=== PATIENT | male | born 1990 | race Caucasian/White ===

== ENCOUNTER 2020-05-12 19:39 | Emergency (ER) | payer MEDICAID ==
[~2020-05-12] VITALS: Ht 185.4 cm; Wt 132.0 kg
[2020-05-12 19:43] VITALS: BP 150/86
[2020-05-12] MEDS ORDERED: ONDANSETRON 4 MG ODT PO ONE (20:00)
[2020-05-12] MEDS ORDERED: MORPHINE SULFATE 4 MG/ML SYR IM ONE (20:00)
[2020-05-12] MEDS ORDERED: LIDOCAINE MPF 1% 10 MG/ML VIAL INJ ONE (20:05)
[2020-05-12] MEDS ORDERED: CEPH250C16 PO (20:37)
[2020-05-12] MEDS ORDERED: ACET-8386 PO (20:37)
[2020-05-12 21:00] VITALS: BP 150/86
== END 2020-05-12 21:00 | disposition home or self-care (01) ==
LOC: MED 19:39
DX: L05.01 Pilonidal cyst with abscess (principal); Z79.899 Other long term (current) drug therapy
CPT/HCPCS: 10080; 96372; 99283; J2001; J2270; Q0162

== ENCOUNTER 2020-05-14 10:14 | Emergency (ER) | payer MEDICAID ==
[~2020-05-14] VITALS: Ht 185.4 cm; Wt 127.0 kg
[~2020-05-14 10:14] MED LIST: ACET-8386 PO; CEPH250C16 PO
[2020-05-14 10:27] VITALS: BP 135/74
--- NOTE | 2020-05-14 10:27 | NUR ---
Patient ambulated to bed 5 with steady/even gait.
--- NOTE | 2020-05-14 10:35 | NUR ---
30 y/o M coming in from home with c/c wound recheck. Patient states he was here two days ago for an pilonidal cyst I&D procedure. Pt states he came in for wound recheck and for packing removal per discharge instructions. Pt states pain alleviated when standing; states pain 6/10 when standing, 7/10 sitting. Pt denies nausea, vomiting, fever, chills, cold-like symptoms, dizziness, weakness. Pt states he has been taking prescribed antibiotics and pain medication as prescribed. Pt placed onto blood pressure cuff and pulse ox. Bed locked in lowest position, side rails x 1. PMH/Meds/Sx: Denies NK
--- NOTE | 2020-05-14 10:50 | NUR ---
Dr. Wilson is evaluating patient at bedside.
[2020-05-14 11:05] VITALS: BP 128/72
--- NOTE | 2020-05-14 11:05 | NUR ---
Patient discharged with v/s stable. Written and verbal after care instructions given and explained. Patient verbalized understanding. Ambulatory with steady gait. All questions addressed prior to discharge. Advised to follow up with PMD.
== END 2020-05-14 11:05 | disposition home or self-care (01) ==
LOC: MED 10:14
DX: L05.01 Pilonidal cyst with abscess (principal); Z48.00 Encounter for change or removal of nonsurgical wound dressing
CPT/HCPCS: 99281; J7030